=== PATIENT | male | born 1995 | race Hispanic/Latino ===

== ENCOUNTER 2019-04-17 19:42 | Emergency (ER) | payer SELFPAY ==
[2019-04-17 21:02] LABS: Absolute Lymphocytes (CBC) 1.9 K/uL (0.7-4.9); Basophils % 0.7 % (0-1.3); Eosinophils % 1.6 % (0-4.4); Hematocrit 46.2 % (39.6-49.0); Lymphocytes % 29.7 % (15.3-44.8); Monocytes % 8.8 % (3.3-12.3); RBC Red Blood Cell Count 5.37 M/uL (4.33-5.43)
[2019-04-17] MEDS ORDERED: NA CHLORIDE 0.9% 1,000 ML ONE (21:03)
[2019-04-17 21:18] LABS: ALT/SGPT 36 U/L (12-78); AST/SGOT 15 U/L (15-37); Albumin 4.4 g/dL (3.4-5.0); Alkaline Phosphatase 61 U/L (45-117); BUN Blood Urea Nitrogen 8 mg/dL (7-18); Bicarbonate 27 mmol/L (21-32); Bilirubin Direct 0.1 mg/dL (0-0.2); Bilirubin Total 0.5 mg/dL (0.2-1.0); Glucose Level 91 mg/dL (74-106); Lipase 60 U/L (73-393); Potassium 3.8 mmol/L (3.5-5.1); Protein, Total 7.9 g/dL (6.4-8.2); Sodium Level 140 mmol/L (136-145)
[2019-04-17] MEDS ORDERED: PROMETHAZINE 25 MG/ML VIAL ONE (21:50)
[2019-04-17] MEDS ORDERED: PANTOPRAZOLE 40 MG INJ ONE (23:23)
[2019-04-17] MEDS ORDERED: SUCRALFATE 1 GM TABLET ONE (23:23)
--- NOTE | 2019-04-17 23:44 | ER ---
Nurse's Notes [facility] Name: Lev Thorpe Age: 23 yrs Sex: Male : 1995 Arrival Date: 04/17/2019 Time: 19:44 Bed 28 Private MD: Diagnosis: Vomiting, unspecified;Gastritis, unspecified, without bleeding;Upper abdominal pain, unspecified Presentation: 04/17 19:48 Presenting complaint: Patient states: upper abd pain and N/V x 2 days. States, "I think aa1 I got food poisoning.". Transition of care: patient was not received from another setting of care. Onset of symptoms was April 15, 2019. Risk Assessment: Do you want to hurt yourself or someone else? Patient reports no desire to harm self or others. Initial Sepsis Screen: Does the patient meet any 2 criteria? HR > 90 bpm. Does the patient have a suspected source of infection? Yes: Acute abdominal pain. Care prior to arrival: None. 19:48 Method Of Arrival: Ambulatory aa1 19:48 Acuity: AMBER 3 aa1 Triage Assessment: 19:50 General: Appears in no apparent distress. comfortable, Behavior is calm, cooperative, aa1 appropriate for age. Historical: - Allergies: 19:50 No Known Allergies; aa1 - Home Meds: 19:50 None [Active]; aa1 - PMHx: 19:50 None; aa1 - PSHx: 19:50 Appendectomy; aa1 - Immunization history:: Adult Immunizations up to date. - Social history:: Smoking status: Patient/guardian denies using tobacco. - Ebola Screening: : Patient denies exposure to infectious person Patient denies travel to an Ebola-affected area in the 21 days before illness onset. Screenin:27 Abuse screen: Denies threats or abuse. Nutritional screening: No deficits noted. fu Tuberculosis screening: No symptoms or risk factors identified. Fall Risk None identified. Assessment: 20:23 General: Appears in no apparent distress. Behavior is calm, cooperative, appropriate fu for age, Reports Denies fever, fatigue, chills. Pain: Complains of pain in epigastric area Pain currently is 6 out of 10 on a pain scale. Quality of pain is described as sharp, Pain began 2 days ago Is intermittent. Neuro: Level of Consciousness is awake, alert, obeys commands, Oriented to person, place, time, situation. Cardiovascular: Heart tones S1 S2 Capillary refill < 3 seconds. Respiratory: Denies cough, shortness of breath. GI: Bowel sounds present X 4 quads. Abd is soft and non tender Reports upper abdominal pain. GI: Abdomen is flat. Derm: No deficits noted. Musculoskeletal: No deficits noted. 21:46 Reassessment: Patient is alert, oriented x 3, equal unlabored respirations, skin fu warm/dry/pink. Pain: Complains of pain in abdomen Pain currently is 4 out of 10 on a pain scale. 23:43 Reassessment: Patient is alert, oriented x 3, equal unlabored respirations, skin fu warm/dry/pink. Patient denies pain at this time. Patient states feeling better. Vital Signs: 19:50 BP 175 / 71; Pulse 82; Resp 18; Temp 98.1; Pulse Ox 99% on R/A; Weight 98.43 kg (R); aa1 Height 5 ft. 9 in. (175.26 cm) (R); Pain 7/10; 20:32 BP 105 / 57; Pulse 71; Resp 18; Temp 97.5; Pulse Ox 99% ; Pain 6/10; fu 21:00 BP 130 / 83; Pulse 62; Resp 16; Pulse Ox 100% ; Pain 6/10; fu 21:30 BP 145 / 95; Pulse 81; Resp 16; Pulse Ox 99% ; Pain 4/10; fu 23:30 BP 117 / 82; Pulse 55; Resp 16; Pulse Ox 100% ; Pain 0/10; fu 19:50 Body Mass Index 32.04 (98.43 kg, 175.26 cm) aa1 ED Course: 19:44 Patient arrived in ED. am2 19:50 Triage completed. aa1 19:50 Arm band placed on right wrist. Patient placed in an exam room, on a stretcher. aa1 19:53 Douglas Bruner, PATIENCE is Primary Nurse. fu 20:21 Dasha Rosas FNP-C is PHCP. snw 20:21 Kiel Burrell MD is Attending Physician. snw 20:40 Inserted saline lock: 22 gauge in left antecubital area, using aseptic technique. fu 20:45 Basic Metabolic Panel Sent. fu 20:45 CBC with Diff Sent. fu 20:45 Creatinine for Radiology Sent. fu 20:45 Hepatic Function Sent. fu 20:45 Lipase Sent. fu 20:45 Basic Metabolic Panel Sent. fu 21:51 Patient has correct armband on for positive identification. Bed in low position. fu 23:49 No provider procedures requiring assistance completed. IV discontinued, bleeding fu controlled, No redness/swelling at site. Pressure dressing applied. Administered Medications: 20:48 Drug: NS 0.9% 1000 ml Route: IV; Rate: 1 bolus; Site: left antecubital; fu 21:46 Drug: Phenergan 6.25 mg Route: IVP; Site: left antecubital; fu 23:13 Drug: ProTONIX 40 mg Route: IVP; Site: left antecubital; fu 23:14 Drug: CarafATE 1 grams Route: PO; fu Outcome: 23:43 Discharge ordered by . james 04/18 00:06 Discharged to home ambulatory. fu Condition: improved Discharge instructions given to patient, Instructed on discharge instructions, follow up and referral plans. Demonstrated understanding of instructions, follow-up care, medications, Prescriptions given X 3. 00:07 Patient left the ED. fu Signatures: Susi Izquierdo, RN RN aa1 Dasha Rosas, AUTOMOTIVE LEASING SALES REPRESENTATIVE-C AUTOMOTIVE LEASING SALES REPRESENTATIVE-Csnw Eli Blunt am2 Douglas Bruner, RN RN fu
--- NOTE | 2019-04-17 23:44 | EDPHYS ---
Physician Documentation [facility] Name: Lev Thorpe Age: 23 yrs Sex: Male : 1995 Arrival Date: 04/17/2019 Time: 19:44 Bed 28 Private MD: ED Physician Kiel Burrell HPI: 04/17 21:49 This 23 yrs old Male presents to ER via Ambulatory with complaints of snw Abdominal Pain, Nausea/Vomiting. 21:49 The patient presents with abdominal pain in the epigastric area, in the upper abdomen. snw Onset: The symptoms/episode began/occurred suddenly, 2 day(s) ago, and became worse and became persistent. The symptoms do not radiate. Associated signs and symptoms: Pertinent positives: nausea, vomiting. The symptoms are described as steady. Severity of pain: At its worst the pain was moderate. The patient has not experienced similar symptoms in the past. It is unknown whether or not the patient has recently seen a physician. pt thinks he had food poisoning 2-3 days ago and it became persistent . Historical: - Allergies: 19:50 No Known Allergies; aa1 - Home Meds: 19:50 None [Active]; aa1 - PMHx: 19:50 None; aa1 - PSHx: 19:50 Appendectomy; aa1 - Immunization history:: Adult Immunizations up to date. - Social history:: Smoking status: Patient/guardian denies using tobacco. - Ebola Screening: : Patient denies exposure to infectious person Patient denies travel to an Ebola-affected area in the 21 days before illness onset. ROS: 21:48 Constitutional: Negative for fever, chills, and weight loss, Eyes: Negative for injury, snw pain, redness, and discharge, ENT: Negative for injury, pain, and discharge, Neck: Negative for injury, pain, and swelling, Cardiovascular: Negative for chest pain, palpitations, and edema, Respiratory: Negative for shortness of breath, cough, wheezing, and pleuritic chest pain, Back: Negative for injury and pain, : Negative for injury, bleeding, discharge, and swelling, MS/Extremity: Negative for injury and deformity, Skin: Negative for injury, rash, and discoloration, Neuro: Negative for headache, weakness, numbness, tingling, and seizure. 21:48 Abdomen/GI: Positive for abdominal pain, nausea and vomiting, of the epigastric area. Exam: 21:48 Constitutional: This is a well developed, well nourished patient who is awake, alert, snw and in no acute distress. Head/Face: Normocephalic, atraumatic. Eyes: Pupils equal round and reactive to light, extra-ocular motions intact. Lids and lashes normal. Conjunctiva and sclera are non-icteric and not injected. Cornea within normal limits. Periorbital areas with no swelling, redness, or edema. Neck: Trachea midline, no thyromegaly or masses palpated, and no cervical lymphadenopathy. Supple, full range of motion without nuchal rigidity, or vertebral point tenderness. No Meningismus. Chest/axilla: Normal chest wall appearance and motion. Nontender with no deformity. No lesions are appreciated. Cardiovascular: Regular rate and rhythm with a normal S1 and S2. No gallops, murmurs, or rubs. Normal PMI, no JVD. No pulse deficits. Respiratory: Lungs have equal breath sounds bilaterally, clear to auscultation and percussion. No rales, rhonchi or wheezes noted. No increased work of breathing, no retractions or nasal flaring. Back: No spinal tenderness. No costovertebral tenderness. Full range of motion. Skin: Warm, dry with normal turgor. Normal color with no rashes, no lesions, and no evidence of cellulitis. MS/ Extremity: Pulses equal, no cyanosis. Neurovascular intact. Full, normal range of motion. Neuro: Awake and alert, GCS 15, oriented to person, place, time, and situation. Cranial nerves II-XII grossly intact. Motor strength 5/5 in all extremities. Sensory grossly intact. Cerebellar exam normal. Normal gait. Psych: Awake, alert, with orientation to person, place and time. Behavior, mood, and affect are within normal limits. 21:48 ENT: External ear(s): are unremarkable, Ear canal(s): are normal, TM's: dullness, erythema, that is mild, on the left, Nose: is normal, Mouth: is normal, Posterior pharynx: erythema, that is moderate, Voice: is hoarse. 21:48 Abdomen/GI: Inspection: abdomen appears normal, Bowel sounds: normal, Palpation: moderate abdominal tenderness, in the epigastric area. Vital Signs: 19:50 BP 175 / 71; Pulse 82; Resp 18; Temp 98.1; Pulse Ox 99% on R/A; Weight 98.43 kg (R); aa1 Height 5 ft. 9 in. (175.26 cm) (R); Pain 7/10; 20:32 BP 105 / 57; Pulse 71; Resp 18; Temp 97.5; Pulse Ox 99% ; Pain 6/10; fu 21:00 BP 130 / 83; Pulse 62; Resp 16; Pulse Ox 100% ; Pain 6/10; fu 21:30 BP 145 / 95; Pulse 81; Resp 16; Pulse Ox 99% ; Pain 4/10; fu 23:30 BP 117 / 82; Pulse 55; Resp 16; Pulse Ox 100% ; Pain 0/10; fu 19:50 Body Mass Index 32.04 (98.43 kg, 175.26 cm) aa1 MDM: 20:22 Patient medically screened. snw 23:43 Data reviewed: vital signs, nurses notes. Data interpreted: Pulse oximetry: on room air snw is 100 %. Interpretation: normal. Counseling: I had a detailed discussion with the patient and/or guardian regarding: the historical points, exam findings, and any diagnostic results supporting the discharge/admit diagnosis, the presence of at least one elevated blood pressure reading (>120/80) during this emergency department visit, lab results, the need for outpatient follow up, to return to the emergency department if symptoms worsen or persist or if there are any questions or concerns that arise at home. Special discussion: Based on the patient's Hx, exam, and Dx evaluation, there is no indication for emergent surgery or inpatient Tx. It is understood by the patient/guardian that if the Sx's persist or worsen they need to return immediately for re-evaluation. I have referred the patient to see his PCP for further evaluation of high blood pressure. Based on the history and exam findings, there is no indication for further emergent testing or inpatient evaluation. I discussed with the patient/guardian the need to see the bindery supervisor for further evaluation of the symptoms. I discussed with the patient/guardian the need to see the primary care provider for further evaluation of the symptoms. 04/17 20:33 Order name: Basic Metabolic Panel snw 04/17 20:33 Order name: CBC with Diff; Complete Time: 21:05 snw 04/17 20:33 Order name: Creatinine for Radiology; Complete Time: 21:23 snw 04/17 20:33 Order name: Hepatic Function; Complete Time: 21:23 snw 04/17 20:33 Order name: Lipase; Complete Time: 21:23 snw 04/17 20:33 Order name: Basic Metabolic Panel; Complete Time: 21:23 EDMS 04/17 20:33 Order name: IV Saline Lock; Complete Time: 20:45 snw 04/17 20:33 Order name: Labs collected and sent; Complete Time: 21:37 snw 04/17 21:31 Order name: Strep; Complete Time: 22:06 snw 04/17 22:18 Order name: Throat Culture EDMS Administered Medications: 20:48 Drug: NS 0.9% 1000 ml Route: IV; Rate: 1 bolus; Site: left antecubital; fu 21:46 Drug: Phenergan 6.25 mg Route: IVP; Site: left antecubital; fu 23:13 Drug: ProTONIX 40 mg Route: IVP; Site: left antecubital; fu 23:14 Drug: CarafATE 1 grams Route: PO; fu Disposition: 04/17/19 23:43 Discharged to Home. Impression: Vomiting, unspecified, Gastritis, unspecified, without bleeding, Upper abdominal pain, unspecified. - Condition is Stable. - Discharge Instructions: Abdominal Pain, Adult, Gastritis, Adult, Hypertension, Nausea and Vomiting, Adult, Peptic Ulcer, Door Diet. - Prescriptions for Bentyl 20 mg Oral Tablet - take 1 tablet by ORAL route every 6 hours As needed; 20 tablet. promethazine 25 mg Oral Tablet - take 1 tablet by ORAL route every 6 hours As needed; 20 tablet. Carafate 1 gram Oral Tablet - take 1 tablet by ORAL route 4 times per day take on an empty stomach, beginning on waking and last dose at bedtime; 100 tablet. - Work release form, Medication Reconciliation Form, Thank You Letter, Antibiotic Education, Prescription Opioid Use form. - Follow up: Private Physician; When: 1 - 2 days; Reason: Recheck today's complaints, Continuance of care, Re-evaluation by your physician. Follow up: Emergency Department; When: As needed; Reason: Worsening of condition. Addendum: 04/21/2019 12:42 Co-signature as Attending Physician, Kiel Burrell MD. m a2 Signatures: Dispatcher [employer] EDMS Susi Izquierdo RN RN aa1 Dasha Rosas FNP-C TRAVELING REPAIR ACCOUNTANT-Douglas Fish RN Kiel Francisco MD MD ma2 Corrections: (The following items were deleted from the chart) 04/18 00:07 04/17 23:43 04/17/2019 23:43 Discharged to Home. Impression: Vomiting, unspecified; fu Gastritis, unspecified, without bleeding; Upper abdominal pain, unspecified. Condition is Stable. Discharge Instructions: Abdominal Pain, Adult, Gastritis, Adult, Hypertension, Nausea and Vomiting, Adult, Peptic Ulcer, Door Diet. Prescriptions for Bentyl 20 mg Oral Tablet - take 1 tablet by ORAL route every 6 hours As needed; 20 tablet, promethazine 25 mg Oral Tablet - take 1 tablet by ORAL route every 6 hours As needed; 20 tablet. and Forms are Work release form, Medication Reconciliation Form, Thank You Letter, Antibiotic Education, Prescription Opioid Use. Follow up: Private Physician; When: 1 - 2 days; Reason: Recheck today's complaints, Continuance of care, Re-evaluation by your physician. Follow up: Emergency Department; When: As needed; Reason: Worsening of condition. snw
== END 2019-04-18 00:07 | disposition home or self-care (01) ==
LOC: ER 19:42
DX: K29.70 Gastritis, unspecified, without bleeding (principal); R10.10 Upper abdominal pain, unspecified
CPT/HCPCS: 36415; 80048; 80076; 83690; 85025; 87070; 87081; 96374; 96375; 99284; C9113; J2550; J7030

== ENCOUNTER 2022-08-04 23:50 | Emergency (ER) | payer SELFPAY ==
--- NOTE | 2022-08-05 00:59 | EDPHYS ---
Physician Documentation [facility] Name: Lev Thorpe Age: 26 yrs Sex: Male : 1995 Arrival Date: 08/05/2022 Time: 00:03 Bed 9 Private MD: ED Physician Chayo Mason HPI: 08/05 00:53 This 26 yrs old Male presents to ER via Ambulatory with complaints of Abscess. sd2 00:53 26-year-old male presents with chief complaint of pilonidal cyst or abscess. He has a sd2 history of these previously that have normally drained or gone away on their own in the past. He states he has had at least 2 other times. He has not been seen by a physician in the past for these as they went away on their own. At this time however, the patient reports the pain and swelling has gotten worse than it has in the past and therefore he came in for drainage. He has not been seen by a surgeon for this. He denies any fevers or vomiting.. Historical: - Allergies: 00:11 No Known Allergies; kl - Home Meds: 00:11 None [Active]; kl - PSHx: 00:11 Appendectomy; kl - Immunization history:: Adult Immunizations up to date. - Social history:: Smoking status: Patient denies any tobacco usage or history of. ROS: 00:53 Constitutional: Negative for fever, chills, and weight loss, Eyes: Negative for injury, sd2 pain, redness, and discharge, Cardiovascular: Negative for chest pain, palpitations, and edema, Respiratory: Negative for shortness of breath, cough, wheezing. Abdomen/GI: Negative for abdominal pain, nausea, vomiting, diarrhea. MS/Extremity: Negative for injury and deformity, Skin: Negative for injury, Positive for abscess Exam: 00:53 Constitutional: This is a well developed, well nourished patient who is awake, alert, sd2 and in no acute distress. Head/Face: Normocephalic, atraumatic. Eyes: EOMI, normal conjunctiva bilaterally Back: No spinal tenderness. No costovertebral tenderness. Full range of motion. Skin: Warm, dry with normal turgor. Pilonidal abscess noted with significant induration, no appreciable fluctuance, mild overlying erythema MS/ Extremity: Pulses equal, no cyanosis. Neurovascular intact. Full, normal range of motion. Ambulatory without difficulty. Vital Signs: 00:09 BP 131 / 91; Pulse 125; Resp 18; Temp 99.2(O); Pulse Ox 100% on R/A; Weight 104.33 kg; kl Height 5 ft. 9 in. (175.26 cm); Pain 4/10; 01:34 Pulse 98; Resp 16; Pulse Ox 100% on R/A; Pain 2/10; kl 00:09 Body Mass Index 33.96 (104.33 kg, 175.26 cm) Procedures: 00:53 I \T\ D: Incision and drainage was performed for an abscess of the pilonidal cyst Prepped sd2 with Betadine, Anesthetized with 10 ml's 1% Lidocaine. Incised with #11 blade. Drained moderate amount purulent fluid. Loculations removed. Abscess cavity explored. Packed with iodoform gauze, Dressing: sterile 4x4 gauze, the patient tolerated the procedure well. MDM: 00:13 Patient medically screened. sd2 00:53 Differential diagnosis: abscess, allergic reaction, cellulitis, insect bite, pilonidal sd2 cyst among others. Data reviewed: vital signs, nurses notes. Counseling: I had a detailed discussion with the patient and/or guardian regarding: the historical points, exam findings, and any diagnostic results supporting the discharge/admit diagnosis, the need for outpatient follow up, to return to the emergency department if symptoms worsen or persist or if there are any questions or concerns that arise at home. ED course: I\T\D performed without complication. Packed appropriately. pt advised of continued wound care and need for dressing/packing change within 48 hours. Pt comfortable with this plan. Will be referred to surgery for follow up as well. Verbalizes understanding of strict return precautions.. Administered Medications: 01:28 Drug: Ibuprofen 800 mg Route: PO; Disposition Summary: 08/05/22 00:57 Discharge Ordered Location: Home sd2 Problem: an acute exacerbation sd2 Symptoms: have improved sd2 Condition: Stable sd2 Diagnosis - Pilonidal cyst with abscess sd2 Followup: sd2 - With: Private Physician - When: 48 Hours - Reason: Wound Recheck Followup: sd2 - With: Arthur Hassan MD - When: 48 Hours - Reason: Recheck today's complaints, Continuance of care, Re-evaluation by your physician Discharge Instructions: - Discharge Summary Sheet sd2 - Pilonidal Cyst sd2 - Pilonidal Cyst Drainage, Care After sd2 Forms: - Medication Reconciliation Form sd2 - Thank You Letter sd2 - Antibiotic Education sd2 - Prescription Opioid Use sd2 Prescriptions: - Clindamycin HCl 300 mg Oral Capsule - take 1 capsule by ORAL route every 6 hours for 10 days; 40 capsule; Refills: 0, sd2 Product Selection Permitted Signatures: Krystal Colon RN RN kl Dunlop, Stephanie, MD MD sd2
--- NOTE | 2022-08-05 00:59 | ER ---
Nurse's Notes [facility] Name: Lev Thorpe Age: 26 yrs Sex: Male : 1995 Arrival Date: 08/05/2022 Time: 00:03 Bed 9 Private MD: Diagnosis: Pilonidal cyst with abscess Presentation: 08/05 00:09 Chief complaint: Patient states: abscess to lower back began x 4 days ago reports pain kl and size increasing per patient area normally drains on own. Coronavirus screen: Vaccine status: Patient reports receiving the 2nd dose of the covid vaccine. Ebola Screen: Patient negative for fever greater than or equal to 101.5 degrees Fahrenheit, and additional compatible Ebola Virus Disease symptoms. Initial Sepsis Screen: Does the patient meet any 2 criteria? HR > 90 bpm. Does the patient have a suspected source of infection?. Risk Assessment: Do you want to hurt yourself or someone else? Patient reports no desire to harm self or others. 00:09 Method Of Arrival: Ambulatory kl 00:09 Acuity: AMBER 3 kl Triage Assessment: 00:11 General: Appears uncomfortable, Behavior is calm, cooperative. Pain: Complains of pain kl in coccyx Pain currently is 4 out of 10 on a pain scale. at worst was 8 out of 10 on a pain scale. Aggravated by weight bearing. Derm: Abscess located on coccyx. Historical: - Allergies: 00:11 No Known Allergies; kl - Home Meds: 00:11 None [Active]; kl - PSHx: 00:11 Appendectomy; kl - Immunization history:: Adult Immunizations up to date. - Social history:: Smoking status: Patient denies any tobacco usage or history of. Screenin:35 Abuse screen: Denies threats or abuse. Nutritional screening: No deficits noted. kl Tuberculosis screening: No symptoms or risk factors identified. Fall Risk None identified. Assessment: 01:00 Reassessment: Patient appears in no apparent distress at this time. Patient and/or kl family updated on plan of care and expected duration. Pain level reassessed. Patient is alert, oriented x 3, equal unlabored respirations, skin warm/dry/pink. Vital Signs: 00:09 BP 131 / 91; Pulse 125; Resp 18; Temp 99.2(O); Pulse Ox 100% on R/A; Weight 104.33 kg; kl Height 5 ft. 9 in. (175.26 cm); Pain 4/10; 01:34 Pulse 98; Resp 16; Pulse Ox 100% on R/A; Pain 2/10; kl 00:09 Body Mass Index 33.96 (104.33 kg, 175.26 cm) ED Course: 00:03 Patient arrived in ED. bp1 00:11 Triage completed. 00:13 Chayo Mason MD is Attending Physician. sd2 00:58 Arthur Hassan MD is Referral Physician. sd2 01:35 Patient has correct armband on for positive identification. kl 01:35 Assist provider with I \T\ D: of an abscess on Set up I\T\D tray. Performed by Chayo Mason MD Wound packed. iodoform gauze, Dressing with 4X4s, Patient tolerated well. Patient did not have IV access during this emergency room visit. Administered Medications: 01:28 Drug: Ibuprofen 800 mg Route: PO; Medication: 01:35 VIS not applicable for this client. Outcome: 00:57 Discharge ordered by . sd2 01:36 Patient left the ED. Signatures: Krystal Colon, RN RN Margi Reyes [facility] Chayo Mason MD MD sd2
[2022-08-05 01:40] VITALS: BP 131/91; TEMP 99.2; O2SAT 100
== END 2022-08-05 01:36 | disposition home or self-care (01) ==
LOC: ER 23:50
PROC: 0H98XZZ Drainage of Buttock Skin, External Approach (ICD-10-PCS; principal; 2022-08-05)
DX: L05.01 Pilonidal cyst with abscess (principal)
CPT/HCPCS: 99283

== ENCOUNTER 2022-08-06 17:44 | Emergency (ER) | payer SELFPAY ==
--- NOTE | 2022-08-06 18:42 | ER ---
Nurse's Notes [facility] Name: Lev Thorpe Age: 26 yrs Sex: Male : 1995 Arrival Date: 08/06/2022 Time: 17:48 Bed 11 Private MD: Diagnosis: Pilonidal cyst with abscess Presentation: 08/06 17:54 Chief complaint: Patient states: PT reports he had a pilonidal cyst drained on 08/04 in 3 this ED and was told to return in 2 days for a wound recheck. PT reports mild amount of drainage from wound. Coronavirus screen: Vaccine status: Patient reports receiving the 2nd dose of the covid vaccine. Client denies travel out of the [place] in the last 14 days. Ebola Screen: Patient negative for fever greater than or equal to 101.5 degrees Fahrenheit, and additional compatible Ebola Virus Disease symptoms Patient denies exposure to infectious person. Patient denies travel to an Ebola-affected area in the 21 days before illness onset. No symptoms or risks identified at this time. Initial Sepsis Screen: Does the patient meet any 2 criteria? No. Patient's initial sepsis screen is negative. Does the patient have a suspected source of infection? No. Patient's initial sepsis screen is negative. Risk Assessment: Do you want to hurt yourself or someone else? Patient reports no desire to harm self or others. Onset of symptoms was August 04, 2022. 17:54 Method Of Arrival: Ambulatory [facility] 17:54 Acuity: AMBER 5 kb3 Triage Assessment: 17:56 General: Appears in no apparent distress. Behavior is calm, cooperative. Pain: Denies [facility] pain. Historical: - Allergies: 17:56 No Known Allergies; kb3 - Home Meds: 17:56 None [Active]; kb3 - PMHx: 17:56 Pilonidal cyst; kb3 - PSHx: 17:56 Appendectomy; 3 - Immunization history:: Adult Immunizations up to date, Client reports receiving the 2nd dose of the Covid vaccine, Last tetanus immunization: up to date. - Social history:: Smoking status: Patient denies any tobacco usage or history of. Vital Signs: 17:54 BP 124 / 82; Pulse 88; Resp 20; Temp 98.4; Pulse Ox 100% ; Weight 104.33 kg; Height 5 kb3 ft. 9 in. (175.26 cm); Pain 0/10; 17:54 Body Mass Index 33.96 (104.33 kg, 175.26 cm) kb3 ED Course: 17:48 Patient arrived in ED. mr 17:56 Triage completed. kb3 17:56 Arm band placed on right wrist. kb3 18:08 Angel[facility] Mcke[facility]-C [facility] kb 18:08 Max Cox MD is Attending Physician. kb Administered Medications: No medications were administered Outcome: 18:41 Discharge ordered by . kb 18:53 Patient left the ED. hb Signatures: Angelina Mckeon FNP-C FNP-Gilberto GrayPaulette mr Marcella Lamas RN RN Cat Concepcion, PATIENCE RN kb3 Corrections: (The following items were deleted from the chart) 17:57 17:56 PMHx: None; kb3 kb3
--- NOTE | 2022-08-06 18:42 | EDPHYS ---
Physician Documentation [facility] Name: Lev Thorpe Age: 26 yrs Sex: Male : 1995 Arrival Date: 08/06/2022 Time: 17:48 Bed 11 Private MD: ED Physician Max Cox HPI: 08/06 18:40 This 26 yrs old Male presents to ER via Ambulatory with complaints of Wound kb Recheck. 18:40 Patient presents to ED for recheck of: abscess. The affected area is on the gluteal kb cleft. Previous treatment: The patient was initially treated 2 day(s) ago, the care was rendered at [facility], Treatment type: The patient's original treatment included an I\T\D, packing. Progress: The patient reports decreased drainage, pain, redness, swelling. The patient has not experienced similar symptoms in the past. The patient has not recently seen a physician. Historical: - Allergies: 17:56 No Known Allergies; kb3 - Home Meds: 17:56 None [Active]; kb3 - PMHx: 17:56 Pilonidal cyst; kb3 - PSHx: 17:56 Appendectomy; kb3 - Immunization history:: Adult Immunizations up to date, Client reports receiving the 2nd dose of the Covid vaccine, Last tetanus immunization: up to date. - Social history:: Smoking status: Patient denies any tobacco usage or history of. ROS: 18:39 Constitutional: Negative for fever, chills, and weight loss. kb 18:39 Skin: Positive for abscess, of the gluteal cleft. 18:39 All other systems are negative. Exam: 18:39 Constitutional: This is a well developed, well nourished patient who is awake, alert, kb and in no acute distress. Head/Face: Normocephalic, atraumatic. ENT: Moist Mucous membranes Respiratory: Respirations even and unlabored. No increased work of breathing. Talking in full sentences MS/ Extremity: Pulses equal, no cyanosis. Neurovascular intact. Full, normal range of motion. Neuro: Awake and alert, GCS 15, oriented to person, place, time, and situation. Moves all extremities. Normal gait. Psych: Awake, alert, with orientation to person, place and time. Behavior, mood, and affect are within normal limits. 18:39 Skin: abscess, that is moderate sized, of the gluteal cleft. Vital Signs: 17:54 BP 124 / 82; Pulse 88; Resp 20; Temp 98.4; Pulse Ox 100% ; Weight 104.33 kg; Height 5 kb3 ft. 9 in. (175.26 cm); Pain 0/10; 17:54 Body Mass Index 33.96 (104.33 kg, 175.26 cm) kb3 MDM: 18:26 Patient medically screened. kb 18:39 Data reviewed: vital signs, nurses notes. Data interpreted: Pulse oximetry: on room air kb is 100 %. Interpretation: normal. Counseling: I had a detailed discussion with the patient and/or guardian regarding: the historical points, exam findings, and any diagnostic results supporting the discharge/admit diagnosis, the need for outpatient follow up, a general surgeon, to return to the emergency department if symptoms worsen or persist or if there are any questions or concerns that arise at home. ED course: Packing removed and abscess repacked with iodoform gauze. Pt educated to follow up with general surgery.. Administered Medications: No medications were administered Disposition Summary: 08/06/22 18:41 Discharge Ordered Location: Home kb Condition: Stable kb Diagnosis - Pilonidal cyst with abscess kb Followup: kb - With: Emergency Department - When: As needed - Reason: Worsening of condition Followup: kb - With: Private Physician - When: 2 - 3 days - Reason: Recheck today's complaints, Continuance of care, Re-evaluation by your physician Discharge Instructions: - Discharge Summary Sheet kb - Pilonidal Cyst kb - Pilonidal Cyst Drainage, Care After kb - Incision and Drainage, Care After kb Forms: - Medication Reconciliation Form kb - Thank You Letter kb - Antibiotic Education kb - Prescription Opioid Use kb Addendum: 08/10/2022 04:10 Co-signature as Attending Physician, Max Cox MD I agree with the assessment and c marin plan of care. Signatures: Angelina Mckeon, MIKEY-C WARDROBE MANAGER-Max Newton MD MD cha Bradberry, Kelly, RN RN kb3 Corrections: (The following items were deleted from the chart) 08/06 17:57 17:56 PMHx: None; kb3 kb3
[2022-08-06 19:04] VITALS: BP 124/82; TEMP 98.4; O2SAT 100
== END 2022-08-06 18:53 | disposition home or self-care (01) ==
LOC: ER 17:44
DX: Z48.00 Encounter for change or removal of nonsurgical wound dressing (principal)
CPT/HCPCS: 99281

== ENCOUNTER 2023-02-25 10:38 | Emergency (ER) | payer SELFPAY ==
[2023-02-25] MEDS ORDERED: LIDOCAINE 1% 20 ML MDV ONE (11:24)
--- NOTE | 2023-02-25 11:38 | ER ---
Nurse's Notes [facility] Name: Lev Thorpe Age: 27 yrs Sex: Male : 1995 Arrival Date: 02/25/2023 Time: 10:38 Bed 12 Private MD: Diagnosis: Pilonidal cyst with abscess Presentation: 02/25 10:56 Chief complaint: Abscess on buttock x 1 week. Recently completed Bactrim. Coronavirus hb screen: At this time, the client does not indicate any symptoms associated with coronavirus-19. Ebola Screen: No symptoms or risks identified at this time. Initial Sepsis Screen: Does the patient meet any 2 criteria? No. Patient's initial sepsis screen is negative. Does the patient have a suspected source of infection? No. Patient's initial sepsis screen is negative. Risk Assessment: Do you want to hurt yourself or someone else? Patient reports no desire to harm self or others. Onset of symptoms was February 17, 2023. 10:56 Method Of Arrival: Ambulatory hb 10:56 Acuity: AMBER 4 hb Historical: - Allergies: 10:57 No Known Allergies; hb - Home Meds: 10:57 None [Active]; hb - PMHx: 10:57 Pilonidal cyst; hb - PSHx: 10:57 Appendectomy; hb - Immunization history:: Adult Immunizations up to date. - Social history:: Smoking status: Patient denies any tobacco usage or history of. Screenin:25 [facility] ED Fall Risk Assessment (Adult) History of falling in the last 3 months, jl7 including since admission No falls in past 3 months (0 pts). Abuse screen: Denies threats or abuse. Denies injuries from another. Nutritional screening: No deficits noted. Tuberculosis screening: No symptoms or risk factors identified. Assessment: 11:25 General: Appears in no apparent distress. uncomfortable, Behavior is calm, cooperative, jl7 appropriate for age. Pain: Complains of pain in buttocks. Derm: Skin is pink, warm \T\ dry. Abscess located on coccyx is half dollar sized, has no drainage, is raised. Vital Signs: 10:56 BP 134 / 79; Pulse 70; Resp 16; Temp 98.3; Pulse Ox 100% on R/A; Weight 102.06 kg; hb Height 5 ft. 9 in. ; Pain 2/10; 10:56 Body Mass Index 33.23 (102.06 kg, 175.26 cm) hb 10:56 Pain Scale: Adult hb ED Course: 10:39 Patient arrived in ED. ts1 10:41 Reynold Madera MD is Attending Physician. rt 10:56 Dasha Dorman FNP-C [facility]. snw 10:56 Shamir Quinn MD is Attending Physician. snw 10:57 Triage completed. hb 10:57 Arm band placed on. hb 11:16 Shelia Rushing RN is Primary Nurse. jl7 11:25 Patient has correct armband on for positive identification. Bed in low position. Call jl7 light in reach. Side rails up X 1. 11:25 Assist provider with I \T\ D: of an abscess on pilonidal cyst Set up I\T\D tray. Performed jl 7 by Dasha REGALADO Wound packed. iodoform gauze, Dressing with ABD pad, Patient tolerated well. 11:36 Arthur Hassan MD is Referral Physician. snw 11:41 Patient did not have IV access during this emergency room visit. jl7 Administered Medications: 11:25 Drug: Lidocaine Infiltration (1 %) 1 vials {Note: administered by Dasha. PROFESSOR OF CRIMINAL JUSTICE.} Volume: jl7 20 ml; Route: Infiltration; 11:40 Follow up: Response: No adverse reaction jl7 Medication: 11:25 VIS not applicable for this client. jl7 Outcome: 11:38 Discharge ordered by . snw 11:49 Discharged to home ambulatory. jl7 11:49 Condition: stable 11:49 Discharge instructions given to patient, Instructed on discharge instructions, follow up and referral plans. medication usage, Demonstrated understanding of instructions, follow-up care, medications, Prescriptions given X 2. 11:50 Patient left the ED. jl7 Signatures: Dasha Dorman FNP-C FNP-Csnw Marcella Lamas RN RN Shelia Rushing RN RN jl7 Reynold Madera MD MD rt Misa Mckinney PAS PAS ts1
--- NOTE | 2023-02-25 11:38 | EDPHYS ---
Physician Documentation [facility] Name: Lev Thorpe Age: 27 yrs Sex: Male : 1995 Arrival Date: 02/25/2023 Time: 10:38 Bed 12 Private MD: ED Physician Shamir Quinn HPI: 02/25 16:18 This 27 yrs old Male presents to ER via Ambulatory with complaints of Cyst. snw Historical: - Allergies: 10:57 No Known Allergies; hb - Home Meds: 10:57 None [Active]; hb - PMHx: 10:57 Pilonidal cyst; hb - PSHx: 10:57 Appendectomy; hb - Immunization history:: Adult Immunizations up to date. - Social history:: Smoking status: Patient denies any tobacco usage or history of. ROS: 16:16 Constitutional: Negative for fever, chills, and weight loss, Eyes: Negative for injury, snw pain, redness, and discharge, ENT: Negative for injury, pain, and discharge, Neck: Negative for injury, pain, and swelling, Cardiovascular: Negative for chest pain, palpitations, and edema, Respiratory: Negative for shortness of breath, cough, wheezing, and pleuritic chest pain, Abdomen/GI: Negative for abdominal pain, nausea, vomiting, diarrhea, and constipation, : Negative for injury, bleeding, discharge, and swelling, MS/Extremity: Negative for injury and deformity, Skin: Negative for injury, rash, and discoloration, Neuro: Negative for headache, weakness, numbness, tingling, and seizure, Psych: Negative for depression, anxiety, suicide ideation, homicidal ideation, and hallucinations. 16:16 Back: Positive for recurrent pilonidal abscess, increased pressure over the past couple of days. Took course of bactrim and pt has been using boil ease and waxing per Dr. Hassan's orders. Exam: 16:14 Constitutional: This is a well developed, well nourished patient who is awake, alert, snw and in no acute distress. Head/Face: Normocephalic, atraumatic. Eyes: Pupils equal round and reactive to light, extra-ocular motions intact. Lids and lashes normal. Conjunctiva and sclera are non-icteric and not injected. Cornea within normal limits. Periorbital areas with no swelling, redness, or edema. ENT: Nares patent. No nasal discharge, no septal abnormalities noted. Tympanic membranes are normal and external auditory canals are clear. Oropharynx with no redness, swelling, or masses, exudates, or evidence of obstruction, uvula midline. Mucous membranes moist. Neck: Trachea midline, no thyromegaly or masses palpated, and no cervical lymphadenopathy. Supple, full range of motion without nuchal rigidity, or vertebral point tenderness. No Meningismus. Chest/axilla: Normal chest wall appearance and motion. Nontender with no deformity. No lesions are appreciated. Cardiovascular: Regular rate and rhythm with a normal S1 and S2. No gallops, murmurs, or rubs. Normal PMI, no JVD. No pulse deficits. Respiratory: Lungs have equal breath sounds bilaterally, clear to auscultation and percussion. No rales, rhonchi or wheezes noted. No increased work of breathing, no retractions or nasal flaring. Abdomen/GI: Soft, non-tender, with normal bowel sounds. No distension or tympany. No guarding or rebound. No evidence of tenderness throughout. Skin: Warm, dry with normal turgor. Normal color with no rashes, no lesions, and no evidence of cellulitis. MS/ Extremity: Pulses equal, no cyanosis. Neurovascular intact. Full, normal range of motion. Neuro: Awake and alert, GCS 15, oriented to person, place, time, and situation. Cranial nerves II-XII grossly intact. Motor strength 5/5 in all extremities. Sensory grossly intact. Cerebellar exam normal. Normal gait. Psych: Awake, alert, with orientation to person, place and time. Behavior, mood, and affect are within normal limits. 16:14 Back: pain, that is moderate, of the lumbar area, pt has pilonidal abscess with the proximal portion very near to spontaneously opening. Area entered with 18g needle and lidocaine 1% instilled. Aspirated about 4ml exudate, area cleansed and opened with 10 blade, loculations opened and large amount of exudate expressed. 1/4 iodoform gauze placed. Pt tolerated well.. Vital Signs: 10:56 BP 134 / 79; Pulse 70; Resp 16; Temp 98.3; Pulse Ox 100% on R/A; Weight 102.06 kg; hb Height 5 ft. 9 in. ; Pain 2/10; 10:56 Body Mass Index 33.23 (102.06 kg, 175.26 cm) hb 10:56 Pain Scale: Adult hb MDM: 11:09 Patient medically screened. snw 16:16 Differential diagnosis: bacterial infection. Data reviewed: vital signs, nurses notes. snw Counseling: I had a detailed discussion with the patient and/or guardian regarding: the historical points, exam findings, and any diagnostic results supporting the discharge/admit diagnosis, the need for outpatient follow up, for definitive care, to return to the emergency department if symptoms worsen or persist or if there are any questions or concerns that arise at home. Special discussion: Based on the history and exam findings, there is no indication for further emergent testing or inpatient evaluation. I discussed with the patient/guardian the need to see the general surgeon for further evaluation of the symptoms. 02/25 11:40 Order name: I\T\D Setup; Complete Time: 11:40 jl7 Administered Medications: 11:25 Drug: Lidocaine Infiltration (1 %) 1 vials {Note: administered by Dasha. CHAMBER WORKER.} Volume: jl7 20 ml; Route: Infiltration; 11:40 Follow up: Response: No adverse reaction jl7 Disposition: 16:47 Co-signature as Attending Physician, Shamir Quinn MD I agree with the assessment and kdr plan of care. Disposition Summary: 02/25/23 11:38 Discharge Ordered Location: Home snw Condition: Stable snw Diagnosis - Pilonidal cyst with abscess snw Followup: snw - With: Emergency Department - When: As needed - Reason: Worsening of condition Followup: snw - With: Arthur Hassan MD - When: 1 week - Reason: Recheck today's complaints, Continuance of care, Re-evaluation by your physician Discharge Instructions: - Discharge Summary Sheet snw - Skin Abscess snw - Incision and Drainage snw - Pilonidal Cyst snw - Incision and Drainage, Care After snw Forms: - Medication Reconciliation Form snw - Thank You Letter snw - Antibiotic Education snw - Prescription Opioid Use snw - Work release form hb Prescriptions: - Tramadol 50 mg Oral Tablet - take 1 tablet by ORAL route every 8 hours as needed; 12 tablet; Refills: 0, snw Product Selection Permitted - Bactrim DS 800-160 mg Oral Tablet - take 1 tablet by ORAL route every 12 hours for 10 days; 20 tablet; Refills: 0, snw Product Selection Permitted Signatures: Shamir Quinn MD MD kdr Waters, Shelly, MIKEY-C COMMUNITY LIVING COACH-Csnw Marcella Lamas, RN RN hb Shelia Rushing RN RN jl7
[2023-02-25 11:54] VITALS: BP 134/79; TEMP 98.3; O2SAT 100
== END 2023-02-25 11:50 | disposition home or self-care (01) ==
LOC: ER 10:38
PROC: 0H98XZZ Drainage of Buttock Skin, External Approach (ICD-10-PCS; principal; 2023-02-25)
DX: L05.01 Pilonidal cyst with abscess (principal)
CPT/HCPCS: 99283; J2001

== ENCOUNTER 2024-06-05 03:52 | Emergency (ER) | payer SELFPAY ==
[2024-06-05] MEDS ORDERED: LIDOCAINE 1% MPF 5 ML VIAL ONE (04:20)
[2024-06-05] MEDS ORDERED: ACETAMINOPHEN 500 MG TAB ONE (04:21)
--- NOTE | 2024-06-05 04:37 | EDPHYS ---
Physician Documentation [facility] Name: Lev Thorpe Age: 28 yrs Sex: Male : 1995 Arrival Date: 06/05/2024 Time: 03:52 Bed 6 Private MD: ED Physician Reynold Madera HPI: 06/05 04:38 This 28 yrs old Male presents to ER via Ambulatory with complaints of Abscess. rt 04:38 Patient presents to the ED with a recurrence of a pilonidal cyst.. Patient states that rt the symptoms have been present for several days. Has seen Dr. Hassan in the past. Denies other acute complaints, symptoms are moderate in severity, no other aggravating alleviating factors.. Historical: - Allergies: 04:01 unknown infant medication; ss - PMHx: 04:01 Pilonidal cyst; ss - PSHx: 04:01 Appendectomy; ss - Immunization history:: Client reports receiving the 2nd dose of the Covid vaccine. - Infectious Disease History:: Denies. - Social history:: Smoking status: Patient denies any tobacco usage or history of. - Family history:: not pertinent. ROS: 04:38 Constitutional: Negative for fever, chills, and weight loss, Neuro: Negative for rt headache, weakness, numbness, tingling, and seizure, Psych: Negative for depression, anxiety, suicide ideation, homicidal ideation, and hallucinations, 04:38 Skin: Positive for Pilonidal cyst with abscess, Exam: 04:38 Constitutional: This is a well developed, well nourished patient who is awake, alert, rt and in no acute distress. Head/Face: Normocephalic, atraumatic. Chest/axilla: Normal chest wall appearance and motion. Nontender with no deformity. No lesions are appreciated. Cardiovascular: Regular rate and rhythm with a normal S1 and S2. No gallops, murmurs, or rubs. Normal PMI, no JVD. No pulse deficits. Respiratory: Lungs have equal breath sounds bilaterally, clear to auscultation and percussion. No rales, rhonchi or wheezes noted. No increased work of breathing, no retractions or nasal flaring. Abdomen/GI: Soft, non-tender, with normal bowel sounds. No distension or tympany. No guarding or rebound. No evidence of tenderness throughout. 04:38 Skin: Pilonidal cyst to the lower back, mild surrounding erythema. Vital Signs: 04:07 BP 123 / 86; Pulse 111; Resp 16; Temp 98.2(O); Pulse Ox 100% on R/A; Weight 113.4 kg; ss Height 5 ft. 9 in. ; Pain 5/10; 04:07 Body Mass Index 36.92 (113.40 kg, 175.26 cm) 04:07 Pain Scale: Adult ss Procedures: 04:38 I \T\ D: Incision and drainage was performed for an abscess of the pilonidal cyst Prepped rt with Betadine, Anesthetized with 2 ml's 1% Lidocaine. Incised with #11 blade. Drained moderate amount purulent fluid. Packed with iodoform gauze, Dressing: sterile 4x4 gauze, the patient tolerated the procedure well. MDM: 04:01 Patient medically screened. rt 04:38 Differential diagnosis: abscess, Pilonidal cyst. Data reviewed: vital signs, nurses rt notes. Care significantly affected by the following chronic conditions: Pilonidal cyst. Counseling: I had a detailed discussion with the patient and/or guardian regarding the historical points, exam findings, and any diagnostic results supporting the discharge/admit diagnosis, the need for outpatient follow up, to return to the emergency department if symptoms worsen or persist or if there are any questions or concerns that arise at home. Response to treatment: the patient's symptoms have markedly improved after treatment. 06/05 04:06 Order name: Incision \T\ Drainage Setup; Complete Time: 04:26 rt Administered Medications: 04:26 Drug: Acetaminophen PO 1000 mg PO once Route: PO; jb4 04:41 Follow up: Response: No adverse reaction; Marked relief of symptoms jb4 04:41 Drug: Lidocaine Infiltration (1 %) 5 mg Infiltration once {Note: administered by ER jb4 provider.} Route: Infiltration; Disposition Summary: 06/05/24 04:37 Discharge Ordered Notes: Location: Home rt Problem: an acute exacerbation rt Symptoms: have improved rt Condition: Stable rt Diagnosis - Pilonidal cyst with abscess rt Followup: rt - With: Arthur Hassan MD - When: 5 - 6 days - Reason: Discharge Instructions: - Discharge Summary Sheet rt - Pilonidal Cyst Drainage rt Forms: - Medication Reconciliation Form rt - Antibiotic Education rt - Prescription Opioid Use rt - Patient Portal Instructions rt - Leadership Thank You Letter rt Prescriptions: - Doxycycline Hyclate 100 mg Oral Tablet - take 1 tablet ORAL route every 12 hours; 20 tablet; Refills: 0, Product rt Selection Permitted Signatures: Carisa Alcala RN RN ss Arthur Kessler RN RN jb4 Reynold Madera MD MD rt
--- NOTE | 2024-06-05 04:37 | ER ---
Nurse's Notes [facility] Name: Lev Thorpe Age: 28 yrs Sex: Male : 1995 Arrival Date: 06/05/2024 Time: 03:52 Bed 6 Private MD: Diagnosis: Pilonidal cyst with abscess Presentation: 06/05 03:58 Chief complaint: Patient states: Pilonidal cyst x 1 month that got worse in the past ss two days. PT reports he typically sees Dr. Hassan to have it drained. Coronavirus screen: Client denies travel out of the [place] in the last 14 days. Ebola Screen: Patient denies exposure to infectious person. Patient denies travel to an Ebola-affected area in the 21 days before illness onset. Initial Sepsis Screen: Does the patient meet any 2 criteria? No. Patient's initial sepsis screen is negative. Does the patient have a suspected source of infection? No. Patient's initial sepsis screen is negative. Risk Assessment: Do you want to hurt yourself or someone else? Patient reports no desire to harm self or others. Onset of symptoms was June 03, 2024. 03:58 Method Of Arrival: Ambulatory ss 03:58 Acuity: AMBER 3 ss Historical: - Allergies: 04:01 unknown medication; ss - PMHx: 04:01 Pilonidal cyst; ss - PSHx: 04:01 Appendectomy; ss - Immunization history:: Client reports receiving the 2nd dose of the Covid vaccine. - Infectious Disease History:: Denies. - Social history:: Smoking status: Patient denies any tobacco usage or history of. - Family history:: not pertinent. Screenin:42 [facility] ED Fall Risk Assessment (Adult) History of falling in the last 3 months, jb4 including since admission No falls in past 3 months (0 pts) Confusion or Disorientation Yes (5 pts) Intoxicated or Sedated No (0 pts) Impaired Gait No (0 pts) Mobility Assist Device Used No (0 pt) Altered Elimination No (0 pt) Score/Fall Risk Level 0 - 2 = Low Risk Oriented to surroundings, Maintained a safe environment. Abuse screen: Denies threats or abuse. Nutritional screening: No deficits noted. Tuberculosis screening: No symptoms or risk factors identified. Assessment: 04:42 General: Appears in no apparent distress. comfortable, Behavior is calm, cooperative, jb4 appropriate for age. Pain: Complains of pain in coccyx Pain does not radiate. Pain currently is 10 out of 10 on a pain scale. Neuro: Level of Consciousness is awake, alert, obeys commands, Oriented to person, place, time, situation. Cardiovascular: Patient's skin is warm and dry. Respiratory: Airway is patent Respiratory effort is even, unlabored, Respiratory pattern is regular, symmetrical. GI: No signs and/or symptoms were reported involving the gastrointestinal system. : No signs and/or symptoms were reported regarding the genitourinary system. EENT: No signs and/or symptoms were reported regarding the EENT system. Derm: Skin is intact, Skin is pink, warm \T\ dry. Musculoskeletal: Circulation, motion, and sensation intact. Range of motion: intact in all extremities. Vital Signs: 04:07 BP 123 / 86; Pulse 111; Resp 16; Temp 98.2(O); Pulse Ox 100% on R/A; Weight 113.4 kg; ss Height 5 ft. 9 in. ; Pain 5/10; 04:07 Body Mass Index 36.92 (113.40 kg, 175.26 cm) ss 04:07 Pain Scale: Adult ss ED Course: 03:54 Patient arrived in ED. jj6 04:01 Reynold Madera MD is Attending Physician. rt 04:01 Triage completed. ss 04:01 Arm band placed on right wrist. ss 04:37 Arthur Hassan MD is Referral Physician. rt 04:42 Patient has correct armband on for positive identification. Bed in low position. Call jb4 light in reach. Side rails up X 1. Provided Education on: discharge instructions.. 04:42 Assist provider with I \T\ D: of an abscess on pilonidal cyst Set up I\T\D tray. Performed loly 4 by Reynold Madera MD Wound packed. iodoform gauze, Dressing with 4X4s, Patient tolerated well. Patient did not have IV access during this emergency room visit. Administered Medications: 04:26 Drug: Acetaminophen PO 1000 mg PO once Route: PO; jb4 04:41 Follow up: Response: No adverse reaction; Marked relief of symptoms jb4 04:41 Drug: Lidocaine Infiltration (1 %) 5 mg Infiltration once {Note: administered by ER jb4 provider.} Route: Infiltration; Medication: 04:42 VIS not applicable for this client. faith Outcome: 04:37 Discharge ordered by . rt 04:42 Discharged to home ambulatory, jbMason 04:42 Condition: stable 04:42 Discharge instructions given to patient, Instructed on discharge instructions, follow up and referral plans. medication usage, Demonstrated understanding of instructions, follow-up care, medications, Prescriptions given X 1, 04:45 Patient left the ED. loly4 Signatures: Carisa Alcala, PATIENCE RN Arthur Kessler RN RN jb4 Sharon Alfaro jj6 Reynold Madera MD MD rt
[2024-06-05 04:49] VITALS: BP 123/86; TEMP 98.2; O2SAT 100
== END 2024-06-05 04:45 | disposition home or self-care (01) ==
LOC: ER 03:52
PROC: 0H98XZZ Drainage of Buttock Skin, External Approach (ICD-10-PCS; principal; 2024-06-05)
DX: L05.01 Pilonidal cyst with abscess (principal)
CPT/HCPCS: J2001